=== PATIENT | male | born 1965 | race Caucasian/White ===

== ENCOUNTER 2019-02-22 05:58 | Observation (INO) | payer BC ==
[2019-02-22] VITALS (31 sets, daily range): BP systolic 106–159; BP diastolic 77–97; PULSE 56–71; RESP 10–37; Ht 185.4 cm; Wt 92.0 kg
[~2019-02-22] VITALS: Ht 185.4 cm; Wt 92.0 kg
[2019-02-22] MEDS ORDERED: BIVALIRUDIN 250 MG/50 ML NS BAG IVPB ONE (07:00)
[2019-02-22] MEDS ORDERED: IODIXANOL LOCM 100 ML BTL ONE (07:05)
[2019-02-22] MEDS ORDERED: FENTAnyl 50 MCG/ML VIAL ONE ×2 (07:05→08:21)
[2019-02-22] MEDS ORDERED: MIDAZOLAM 1 MG/ML 2 ML INJ ONE ×2 (07:05→08:21)
[2019-02-22] MEDS ORDERED: LIDOCAINE 1% (MDV) 20 ML INJ ONE (07:05)
[2019-02-22] MEDS ORDERED: METO-336 ORAL (07:20)
[2019-02-22] MEDS ORDERED: CLOP75TA28 ORAL (07:20)
[2019-02-22] MEDS ORDERED: LOSA50TA14 ORAL (07:20)
[2019-02-22] MEDS ORDERED: AMLO-145 ORAL (07:20)
[2019-02-22] MEDS ORDERED: ASPI-903 PO (07:20)
[2019-02-22] MEDS ORDERED: VERAPAMIL 5 MG INJ ONE ×2 (07:23→08:44)
[2019-02-22] MEDS ORDERED: HEPARIN 1000 UNITS/ML 10 ML INJ ONE (07:23)
[2019-02-22] MEDS ORDERED: NITROGLYCERIN (IC) 100 MCG/ML INJ ONE ×2 (07:23→08:28)
[2019-02-22] MEDS ORDERED: ASPIRIN 325 MG TAB ONE (09:03)
[2019-02-22] MEDS ORDERED: CLOPIDOGREL 300 MG TAB ONE (09:03)
[2019-02-22] MEDS ORDERED: SOD CHLORIDE 0.9% 1,000 ML IV SCH (09:04)
--- NOTE | 2019-02-22 09:16 | OPR ---
Date/Time of Note Date/Time of Note DATE: 02/22/19 TIME: 09:10 Operative Report Procedure Date: Feb 22, 2019 Preoperative Diagnosis CAD. ANGINA. ABNORMAL STRESS TEST Postoperative Diagnosis same Operation/Procedure Performed PCI LAD Surgeon see signature line Dining Car [employer] shikha Anesthesia Type: moderate sedation Estimated Blood Loss: minimal Transfusion none Specimen none Grafts/Implants none Complications none Procedure Description Energy Project Engineer: Stephanie Subramanian MD Indication: 53-year-old gentleman with history of coronary artery disease status post PCI who presented with anginal chest pain consistent with unstable angina. Patient was also known to have abnormal stress test previously but was treated medically per his request Procure performed: #1 left heart catheterization and selective right and left coronary angiogram #2 Right femoral angiogram and closure using a Perclose device 3. Successful PTCA and stenting of ostial left anterior descending artery using a 3.5 x 16 mm Synergy drug-eluting stent 4. Ultrasound-guided placement of left radial arterial sheath 5. Moderate sedation for more than [] minutes Findings: 1. Left main: is long and birfurcates to LAD & LCX. It has about 10% distal stenosis 2. LAD: has a deep % stenosis at ostial LAD prior to the previous stent, and 20 % stenosis at mid LAD. After successful PCI of this lesion there was no significant residual stenosis left 3. Left circumflex artery: is nondominant. it has 30 % stenosis ostially. OM1 is a moderate size vessel with about 60-70% stenosis. After intracoronary nitroglycerin injection this lesion appeared to be less significant. 4. RCA: is dominant. it has 100 % stenosis at maximal right coronary artery. There is right to right collaterals and [id number] collaterals noted 5. LV: 132/15 aortic pressure by pull back: 132/80 Procedure in detail: Written informed consent with obtained after risks benefits and alternatives discussed with the patient in detail. risks including but not limited to risk of infection vascular complications, bleeding complications, TX stroke arrhythmia renal failure at even were discussed with the patient in detail. Patient was brought into the cardiac laboratory tester and placed in supine position. Left radial artery was prepped and draped in sterile fashion. It was anesthetized with 1% lidocaine. With the use of ultrasound left radial artery was cannulated and a 6 Romanian sheath was placed in the left thumb radial artery using modified Seldinger technique. Flow was withdrawn. Wire was advanced into the subclavian artery. However patient had quite a bit of pain with advancement of right 4 catheter. I used a 5 Romanian catheter and he still continued to have pain upon advancement of the catheter. Angiogram of this artery was done and it appeared to have severe spasm noted. It was decided to go femoral approach Right and left groin area was prepped and draped in regular sterile fashion and then he was in anesthetized using 1% lidocaine. Right femoral artery was cannulated and using modified seldinger technique a 6 Romanian sheath was placed in the femoral artery. Femoral angiogram was performed JL4 guiding catheter was advanced to engage the left main coronary artery angiographic view was obtained. Intracoronary nitroglycerin was given angiography was obtained. Intracoronary recent injection appears that the LAD lesion appeared to be more significant in the left circumflex lesion appeared to be less significant JR4 catheter was advanced and engaged into the right coronary artery and angiographic view was obtained. Then a pigtail was advanced to engage the left ventricle hemodynamics as recorded by pullback aortic pressure was measured. Patient had previously refused bypass again this was explained to her that bypass would be the best choice however he continues to refuse to undergo bypass surgery. At this time we decided to perform PCI of the ostial left anterior descending artery. A JL4 guiding head was advanced to engage the left main coronary artery. BMW wire was used and advanced across the lesion and placed distal to the LAD lesion. I used a 3 x 8 mm noncompliant balloon which was placed across the lesion and predilated the vessel. Then I used another wire in place across the circumflex lesion to protect it. then I used a 0.5 x 16 mm Synergy drug-eluting stent which was placed across the lesion and deployed at 14 Sunny. Final angiographic view was obtained which showed CAROL-3 flow no evidence of dis section and no significant residual stenosis at the site of the stent. perclose was successfully deployed. Patient tolerated the procedure well with no complication. Patient was transferred to ICU in stable condition. contrast used: 75 cc Visipaque Conclusions: Successful PTCA stenting of the ostial left anterior descending artery from 80% stenosis to no significant residual stenosis using a 3.5 x 16 mm Synergy drug-eluting stent. Recommendations: Aggressive medical therapy. aspirin indefinitely dual antiplatlet therapy with aspirin and Plavix STEPHANIE SUBRAMANIAN MD [facility] STEPHANIE SUBRAMANIAN MD Feb 22, 2019 09:16
[2019-02-22] MEDS ORDERED: OXYCODONE/ACETAMINOPHEN (5/325) TAB PO PRN (09:30)
[2019-02-22] MEDS ORDERED: ACETAMINOPHEN 325 MG TAB PO PRN (09:30)
[2019-02-22] MEDS ORDERED: morphine 2 MG INJ IV PRN (09:30)
--- NOTE | 2019-02-22 17:13 | HP ---
DATE OF ADMISSION: 02/22/2019 CHIEF COMPLAINT: Coronary artery disease, angina, abnormal stress test. HISTORY OF PRESENT ILLNESS: This is a 53-year-old male with past medical history of coronary artery disease, status post PCI, who was seen in outpatient setting for anginal chest pain. The patient was noted to have abnormal stress test. As a result, he came into [facility] elective cardiac catheterization by Dr. Subramanian. The patient had successful PCI of the ostial l eft anterior descending artery with drug-eluting stent. The patient was then following the procedure transferred to telemetry for observation. Upon my evaluation of the patient at this time, he is currently stable. Denies any fevers, chills, n ausea, vomiting. Denied any chest pain. PAST MEDICAL HISTORY: History of coronary artery disease, history of hypertension. PAST SURGICAL HISTORY: Status post cardiac catheterization. ALLERGIES: NO KNOWN DRUG ALLERGIES. FAMILY HISTORY: No family history of kidney disease. SOCIAL HISTORY: Does not drink, smoke or do drugs. MEDICATIONS: Have been reviewed. REVIEW OF SYSTEMS: A 14-point review of systems conducted. Pertinent positives stated in HPI, other combs negative. PHYSICAL EXAMINATION: VITAL SIGNS: Blood pressure 128/91, respiration 14, pulse 62, temperature 98.7. HEENT: Head is normocephalic. NECK: Supple. HEART: Regular rate. LUNGS: Show diminished breath sounds at base. ABDOMEN: Soft, nontender to palpation without rebound or guarding. EXTREMITIES: Negative for clubbing, cyanosis. No edema. DERMATOLOGIC: No rashes. MUSCULOSKELETAL: No joint effusion. NEUROLOGIC: No focal deficits. LABORATORY DATA: Have been reviewed. ASSESSMENT AND PLAN: A 53-year-old male who presents with: 1. Coronary artery disease, status post PCI to the LAD. The patient is currently stable. Continue current medical management. Continue aspirin and Plavix. We will monitor closely on telemetry. Fol low up with cardiology. 2. Hypertension. Continue current blood pressure regimen. 3. Mild azotemia. The patient is receiving IV fluids. We will continue to monitor. 4. Gastrointestinal and deep venous thrombosis prophylaxis. Please note, I spent an additional 30 minutes of [id number] time with the patient, discussing advan kevin directives and code status. The patient is full code. Dictated By: ADITI BARRERA DO NR/NTS Conf#: [id number] DID#: [id number] CC: STEPHANIE SUBRAMANIAN MD;*End*
--- NOTE | 2019-02-22 17:33 | RADRPT ---
Vent Rate: 62 bpm RR Interval: 960 msec [place] Interval: 182 msec QRS Duration: 102 msec QT Interval: 425 msec QTC Interval: 434 msec P-R-T [place]: 49 - 39 - 59 degrees Sinus rhythm...normal P axis, V-rate 50- 99 Electronically Signed By: Romel Hill
--- NOTE | 2019-02-22 17:34 | RADRPT ---
Vent Rate: 71 bpm RR Interval: 0 msec MA Interval: 180 msec QRS Duration: 106 msec QT Interval: 404 msec QTC Interval: 439 msec P-R-T [place]: 59 - 56 - 68 degrees Normal sinus rhythm Septal infarct , age undetermined Abnormal ECG Electronically Signed By: Romel Hill
== END 2019-02-22 19:34 | disposition home or self-care (01) ==
LOC: CCL 05:58 → SDS 05:58 → CCL 09:03 → REC 09:04 → TEL 11:50
PROVIDERS: ADMIT Internal Medicine Interventional Cardiology; ATTEND Internal Medicine Interventional Cardiology
DX: I25.118 Atherosclerotic heart disease of native coronary artery with other forms of angina pectoris (principal); I10 Essential (primary) hypertension; R79.89 Other specified abnormal findings of blood chemistry
CPT/HCPCS: 80053; 80061; 82550; 82553; 84484; 85025; 85610; 85730; 92920; 92928; 93005; 93458; C1725; C1760; C1874; C1887; C1894; G0378; J0583; J1644; J2250; J3010; Q9967